=== PATIENT | female | born 1965 | race Caucasian/White ===

== ENCOUNTER 2018-05-02 16:29 | Emergency (ER) | payer OTHER ==
[2018-05-02] MEDS ORDERED: ACETAMINOPHEN 500 MG TAB PO ONE (16:45)
[2018-05-02] MEDS: NS 1,000 ML IV ONE ×2 (17:10→18:04)
--- NOTE | 2018-05-02 17:28 | EDPHY ---
H & P Stated Complaint: c/o lower abd pain last pm then this am Nausea/fever inc today Time Seen by Provider: 05/02/18 16:37 HPI/ROS: CHIEF COMPLAINT: Fever and lower abdominal pain History by patient HISTORY OF PRESENT ILLNESS: 52-year-old woman with a history of fibromyalgia, hypothyroidism is referred by her primary care physician [place] the [place] because of elevated temperature and lower abdominal pain. Patient states that last night she began developing lower crampy abdominal pain which felt something like period cramps or may be needed to have a bowel movement. She woke in the middle the night covered in sweat. This morning she woke up and she felt generally weak and continued to have the lower abdominal pain cramps. She denies any dysuria, urgency or frequency. She does radiate into her back somewhat. She has had some ongoing foul-smelling yellow vaginal discharge for several weeks to months. She has associates this with being put on hormones by a new physician. Her daughter recently had pharyngitis but the patient denies any sore throat or pain with swallowing. She has had no cough or runny nose. She denies any difficulty breathing. She has had some nausea but no vomiting has been unable to eat today because of this. REVIEW OF SYSTEMS: As in HPI, and all other systems reviewed and are negative Source: Patient - Personal History LMP (Females 10-55): 8-14 Days Ago Current Tetanus Diphtheria and Acellular Pertussis (TDAP): Yes - Medical/Surgical History Other PMH: Chronic fatigue/FM/ - Social History Smoking Status: Never smoked - Physical Exam Exam: General Appearance: Alert, nontoxic-appearing Head: normocephalic, atraumatic Eyes: Pupils equal and round, reactive to light, no pallor or injection. Mouth: Mucous membranes moist. Oropharynx clear Neck: No bony tenderness, full range of motion Respiratory: Normal, effort, lungs are clear to auscultation. No wheezes, rales or rhonchi. Cardiovascular: Regular rate and rhythm. S1, S2, no murmurs, gallops or rubs appreciated Gastrointestinal: Abdomen is soft and mild bilateral lower abdominal and suprapubic tenderness, no masses, bowel sounds normal. : Positive copious thick white discharge, positive friable, red, irregular cervix, positive cervical motion tenderness and left adnexal tenderness Back: Mild bilateral CVA tenderness, no bony tenderness Neurological: Awake, alert and oriented x 3, cranial nerves 2-12 intact, no pronator drift, normal gait, Skin: Warm and dry, no rashes. Musculoskeletal: No deformities or tenderness. Extremities: full range of motion, no edema, DP2+ bilat Psychiatric: Patient has normal affect, there is no agitation. Constitutional: Initial Vital Signs Temperature (C) 38 C 05/02/18 16:39 Heart Rate 116 H 05/02/18 16:39 Respiratory Rate 20 05/02/18 16:39 Blood Pressure 120/82 H 05/02/18 16:39 O2 Sat (%) 95 05/02/18 16:39 O2 Delivery Mode Room Air Allergies/Adverse Reactions: levothyroxine Allergy (Verified 05/02/18 16:38) Home Medications: Medication Instructions Recorded Doxycycline Monohydrate 100 mg PO BID #28 capsule 05/02/18 Levothyroxine 05/02/18 metroNIDAZOLE [Flagyl 500 mg (*)] 500 mg PO BID #28 tab 05/02/18 Medical Decision Making - Diagnostics Imaging Results: Imaging Impressions Chest X-Ray 05/02/18 16:37 Impression: Normal. Pelvic/Renal Ultrasound 05/02/18 17:48 Impression: 1. No evidence of tubo-ovarian abscess. These findings were discussed with Nataliia Crocker by telephone at 6:51 PM on 05/02/2018 Imaging: Discussed imaging studies w/ mail caller Radiologist ED Course/Re-evaluation: 52-year-old woman presents with fever and lower abdominal pain and vaginal discharge. Exam is consistent with pelvic inflammatory disease however given her high fever tenderness, elevated white blood cell count, and uterine fullness and transvaginal ultrasounds obtained to rule out tubo-ovarian abscess. This was read as negative by the radiologist. Patient was given 2 L of IV fluids, IV ceftriaxone and oral doxycycline on re-evaluation she was feeling better, her temperature came down and her heart rate was normal. There is no evidence of significant systemic toxicity in her lactate was within normal limits. At this point I think it is safe to treat her as an outpatient. I have also written a prescription for her for primary treatment. We discussed the need to use condoms as she is completely finished her antibiotics. GC chlamydia genprobe was sent well as swab for Gardnerella and these results are pending at time dictation. Patient will call for these results. I recommending close follow up with primary care physician for recheck next week and we discussed return precautions with the emerged department over the weekend. Patient understands and is agreeable to this plan. - Data Points Laboratory Results: Laboratory Results 05/02/18 16:50 05/02/18 05/02/18 05/02/18 17:45 17:45 17:42 WBC RBC Hgb Hct MCV MCH MCHC RDW Plt Count MPV Neut % (Auto) Lymph % (Auto) Lamar % (Auto) Eos % (Auto) Baso % (Auto) Nucleat RBC Rel Count Absolute Neuts (auto) Absolute Lymphs (auto) Absolute Monos (auto) Absolute Eos (auto) Absolute Basos (auto) Absolute Nucleated RBC Immature Gran % Immature Gran # POC Sodium POC Potassium POC Chloride POC Total CO2 POC BUN POC Creatinine POC Glucose POC Lactic Acid Lui 1.7 mmol/L mmol/L (0.7-2.1) POC Calcium POC Total Bilirubin 1.0 mg/dL mg/dL (0.1-1.4) Total Bilirubin Conjugated Bilirubin Unconjugated Bilirubin POC GGT 13 IU/L IU/L (5-65) POC AST 25 IU/L IU/L (14-46) AST POC ALT 21 IU/L IU/L (9-52) ALT POC Alk Phosphatase 76 IU/L IU/L (38-126) Alkaline Phosphatase POC Total Protein 7.5 g/dL g/dL (6.3-8.2) Total Protein POC Albumin 4.2 g/dL g/dL (3.5-5.0) Albumin POC Amylase 36 IU/L IU/L (30-110) Ana species DNA C.trachomatis RNA (TMA) TNP Gardnerella DNA Probe N.gonorrhoeae RNA (TMA) TNP Trichomonas DNA Probe 05/02/18 05/02/18 05/02/18 17:40 17:23 16:50 WBC RBC Hgb Hct MCV MCH MCHC RDW Plt Count MPV Neut % (Auto) Lymph % (Auto) Lamar % (Auto) Eos % (Auto) Baso % (Auto) Nucleat RBC Rel Count Absolute Neuts (auto) Absolute Lymphs (auto) Absolute Monos (auto) Absolute Eos (auto) Absolute Basos (auto) Absolute Nucleated RBC Immature Gran % Immature Gran # POC Sodium 137 mEq/L mEq/L (135-145) POC Potassium 3.3 mEq/L mEq/L (3.3-5.0) POC Chloride 102.0 mEq/L mEq/L (97-110) POC Total CO2 23 mEq/L mEq/L (22-31) POC BUN 8 mg/dL mg/dL (7-23) POC Creatinine 0.6 mg/dL mg/dL (0.6-1.0) POC Glucose 103 mg/dL H mg/dL (70-100) POC Lactic Acid Lui POC Calcium 9.7 mg/dL mg/dL (8.5-10.4) POC Total Bilirubin Total Bilirubin 0.9 mg/dL mg/dL (0.1-1.4) Conjugated Bilirubin 0.1 mg/dL mg/dL (0.0-0.5) Unconjugated Bilirubin 0.8 mg/dL mg/dL (0.0-1.1) POC GGT POC AST AST 21 IU/L IU/L (14-46) POC ALT ALT 32 IU/L IU/L (9-52) POC Alk Phosphatase Alkaline Phosphatase 83 IU/L IU/L (38-126) POC Total Protein Total Protein 7.3 g/dL g/dL (6.3-8.2) POC Albumin Albumin 4.2 g/dL g/dL (3.5-5.0) POC Amylase Ana species DNA Pending C.trachomatis RNA (TMA) Gardnerella DNA Probe Pending N.gonorrhoeae RNA (TMA) Trichomonas DNA Probe Pending 05/02/18 16:50 WBC 14.26 10^3/uL H 10^3/uL (3.80-9.50) RBC 4.47 10^6/uL 10^6/uL (4.18-5.33) Hgb 13.9 g/dL g/dL (12.6-16.3) Hct 38.7 % % (38.0-47.0) MCV 86.6 fL fL (81.5-99.8) MCH 31.1 pg pg (27.9-34.1) MCHC 35.9 g/dL g/dL (32.4-36.7) RDW 11.7 % % (11.5-15.2) Plt Count 258 10^3/uL 10^3/uL (150-400) MPV 9.6 fL fL (8.7-11.7) Neut % (Auto) 83.3 % H % (39.3-74.2) Lymph % (Auto) 8.3 % L % (15.0-45.0) Lamar % (Auto) 7.6 % % (4.5-13.0) Eos % (Auto) 0.1 % L % (0.6-7.6) Baso % (Auto) 0.2 % L % (0.3-1.7) Nucleat RBC Rel Count 0.0 % % (0.0-0.2) Absolute Neuts (auto) 11.89 10^3/uL H 10^3/uL (1.70-6.50) Absolute Lymphs (auto) 1.18 10^3/uL 10^3/uL (1.00-3.00) Absolute Monos (auto) 1.08 10^3/uL H 10^3/uL (0.30-0.80) Absolute Eos (auto) 0.01 10^3/uL L 10^3/uL (0.03-0.40) Absolute Basos (auto) 0.03 10^3/uL 10^3/uL (0.02-0.10) Absolute Nucleated RBC 0.00 10^3/uL 10^3/uL (0-0.01) Immature Gran % 0.5 % % (0.0-1.1) Immature Gran # 0.07 10^3/uL 10^3/uL (0.00-0.10) POC Sodium POC Potassium POC Chloride POC Total CO2 POC BUN POC Creatinine POC Glucose POC Lactic Acid Lui POC Calcium POC Total Bilirubin Total Bilirubin Conjugated Bilirubin Unconjugated Bilirubin POC GGT POC AST AST POC ALT ALT POC Alk Phosphatase Alkaline Phosphatase POC Total Protein Total Protein POC Albumin Albumin POC Amylase Ana species DNA C.trachomatis RNA (TMA) Gardnerella DNA Probe N.gonorrhoeae RNA (TMA) Trichomonas DNA Probe Medications Given: Discontinued Medications Acetaminophen (Tylenol) 1,000 mg PO EDNOW ONE Stop: 05/02/18 16:46 Last Admin: 05/02/18 17:10 Dose: 1,000 mg Sodium Chloride (Ns) 1,000 mls @ 0 mls/hr IV ONCE ONE; Wide Open PRN Reason: Protocol Stop: 05/02/18 16:38 Last Admin: 05/02/18 18:04 Dose: 1,000 mls Cefoxitin Sodium 2 gm/ Sodium (Chloride) 100 mls @ 200 mls/hr IV EDNOW ONE PRN Reason: Protocol Stop: 05/02/18 18:20 Last Admin: 05/02/18 18:05 Dose: 100 mls Doxycycline Hyclate 100 mg/ (Sodium Chloride) 260 mls @ 260 mls/hr IV Q12HRS KALYAN PRN Reason: Protocol Stop: 06/01/18 20:59 Last Admin: 05/02/18 18:54 Dose: 260 mls Sodium Chloride (Ns) 1,000 mls @ 0 mls/hr IV ONCE ONE PRN Reason: Wide Open Stop: 05/02/18 17:53 Last Admin: 05/02/18 18:28 Dose: Not Given Point of Care Test Results: Chemistry 05/02/18 05/02/18 17:42 17:23 POC Sodium 137 mEq/L mEq/L (135-145) POC Potassium 3.3 mEq/L mEq/L (3.3-5.0) POC Chloride 102.0 mEq/L mEq/L (97-110) POC Total CO2 23 mEq/L mEq/L (22-31) POC BUN 8 mg/dL mg/dL (7-23) POC Creatinine 0.6 mg/dL mg/dL (0.6-1.0) POC Glucose 103 mg/dL H mg/dL (70-100) POC Calcium 9.7 mg/dL mg/dL (8.5-10.4) POC Total Bilirubin 1.0 mg/dL mg/dL (0.1-1.4) POC GGT 13 IU/L IU/L (5-65) POC AST 25 IU/L IU/L (14-46) POC ALT 21 IU/L IU/L (9-52) POC Alk Phosphatase 76 IU/L IU/L (38-126) POC Total Protein 7.5 g/dL g/dL (6.3-8.2) POC Albumin 4.2 g/dL g/dL (3.5-5.0) POC Amylase 36 IU/L IU/L (30-110) Blood Gas/Lactic Acid-Venous 05/02/18 17:45 POC Lactic Acid Lui 1.7 mmol/L mmol/L (0.7-2.1) Departure - Departure Disposition: Home, Routine, Self-Care Clinical Impression: PID (acute pelvic inflammatory disease) Condition: Good Instructions: Pelvic Inflammatory Disease (ED) Additional Instructions: You were seen by Dr. Nataliia Crocker today. We are treating you for pelvic inflammatory disease. Please take antibiotics as prescribed. Take your probiotics see in between doses of antibiotics not at the same time. Please follow up with primary care physician next week for recheck and sooner in the ER if he seemed to be getting worse over the weekend. Do not have sexual intercourse with out using condoms until you have completed a full course of antibiotics. We did not do a Pap smear today. I recommend having a Pap smear or HPV test as soon as possible as there was some inflammation on your cervix. Return for any worsening or new concerns. Referrals: Michaelle Colunga DO [Primary Care Provider] - As per Instructions Prescriptions: Doxycycline Monohydrate 100 mg PO BID #28 capsule metroNIDAZOLE [Flagyl 500 mg (*)] 500 mg PO BID #28 tab
[2018-05-02] MEDS ORDERED: cefOXitin SODIUM 2 GM in NS 100 ML IV ONE (17:51)
[2018-05-02] MEDS ORDERED: NS 1,000 ML IV ONE (17:52)
[2018-05-02 18:26] LABS: PLATELET COUNT 258 10^3/uL (150-400)
[2018-05-02] MEDS ORDERED: DOXYCYCLINE INJ 100 MG in NS 250 ML IV SCH (21:00)
[2018-05-02 21:14] VITALS: BP 113/71
[2018-05-05 12:11] LABS: GC AMPLIFICATION GENPROBE NEGATIVE (NEGATIVE)
== END 2018-05-02 19:46 | disposition home or self-care (01) ==
LOC: CED 16:29
DX: N73.9 Female pelvic inflammatory disease, unspecified (principal); E86.9 Volume depletion, unspecified
CPT/HCPCS: 71046-PO; 76856-PO; 80048-PO; 80076-PO; 82150-PO; 83605-PO; 96365; J0694

== ENCOUNTER 2018-05-05 16:13 | Observation (INO) | payer OTHER ==
[2018-05-05] MEDS ORDERED: NS 1,000 ML IV ONE (16:41)
--- NOTE | 2018-05-05 16:41 | EDPHY ---
H & P Stated Complaint: HIVES/NAUSEA AFTER STARTING FLAGYL/DOXY Time Seen by Provider: 05/05/18 16:16 HPI/ROS: CHIEF COMPLAINT: Vomiting HISTORY OF PRESENT ILLNESS: 52-year-old female presents with persistent vomiting. Onset of lower abdominal pain and fever 4 days ago. She was seen at the [facility] 3 days ago and diagnosed with PID. She was given ceftriaxone IM and prescriptions for Flagyl and doxycycline. Presents today because of persistent vomiting after taking the antibiotics. Also developed an itchy rash after abx. 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 The lower abdominal pain is returning and now is localized to the right lower quadrant. One sexual partner (). No sexual intercourse in 3-4 months. REVIEW OF SYSTEMS: complete 10 point ROS reviewed and is negative except for the noted elements in the HPI - Personal History Current Tetanus/Diphtheria Vaccine: Yes - Medical/Surgical History Hx Asthma: No Hx Chronic Respiratory Disease: No Hx Diabetes: No Hx Cardiac Disease: No Hx Renal Disease: No Hx Cirrhosis: No Hx Alcoholism: No Hx HIV/AIDS: No Hx Splenectomy or Spleen Trauma: No Other PMH: Chronic fatigue/FM/ ., HYPOTHYROID, FIBROMYALGIA - Social History Smoking Status: Never smoked Additional Social History: - Physical Exam Exam: General Appearance: Alert, pleasant Eyes: Pupils equal and round, no conjunctival pallor or injection ENT, Mouth: Mucous membranes moist Neck: Normal inspection Respiratory: Lungs are clear to auscultation Cardiovascular: Regular rate and rhythm Gastrointestinal: Abdomen is soft, right lower quadrant and suprapubic tenderness Neurological: A&O, nonfocal, normal gait Skin: Warm and dry, no rash Extremities: Nontender, no pedal edema Psychiatric: Tearful at times Constitutional: Initial Vital Signs Temperature (C) 36.8 C 05/05/18 16:23 Heart Rate 89 05/05/18 16:23 Respiratory Rate 16 05/05/18 16:23 Blood Pressure 126/86 H 05/05/18 16:23 O2 Sat (%) 96 05/05/18 16:23 O2 Delivery Mode Room Air Allergies/Adverse Reactions: doxycycline Allergy (Intermediate, Verified 05/05/18 19:27) Vomiting metronidazole [From Flagyl] Allergy (Intermediate, Verified 05/05/18 19:27) Vomiting levothyroxine Allergy (Verified 05/02/18 16:38) Home Medications: Medication Instructions Recorded Citalopram Hydrobromide 40 mg PO DAILY 05/05/18 [Citalopram HBr] Cyclobenzaprine [Cyclobenzaprine 5 mg PO DAILY PRN 05/05/18 HCl] Dhea Sr 40mg 4 mg PO DAILY@10 05/05/18 Gabapentin [Neurontin 100 MG (*)] 100 - 200 mg PO DAILY@05/05/18 Herbals/Supplements -Info Only 1 ea PO DAILY 05/05/18 Levothyroxine [Synthroid 75 mcg 75 mcg PO DAILY06 05/05/18 (*)] Ondansetron [Zofran Odt] 8 mg PO Q6 PRN 05/05/18 Progesterone Er 30mg 30 mg PO DAILY@05/05/18 T3/T4 0.75gr 1 tab PO DAILY@05/05/18 clonazePAM [Klonopin (*)] 0.5 mg PO DAILY@05/05/18 traZODone [traZODONE 50MG (*)] 50 - 100 mg PO HS 05/05/18 Medical Decision Making - Diagnostics Imaging Results: Imaging Impressions Abdomen CT 05/05/18 16:42 Impression: 1. Mild diverticulitis suspected mid sigmoid colon anteriorly above the bladder and anterior to the uterus. 2. Uterine fibroids with left adnexal follicular cyst noted. Findings discussed with Leah Villalta M.D. at 17:41 hour, 05/05/2018. Imaging: Discussed imaging studies w/ call or contact centre manager Radiologist ED Course/Re-evaluation: Old medical record reviewed. Cultures from 05/02/2018 are negative, including Chlamydia and gonorrhea. IV normal saline 1 L given for dehydration. CT abd/ pelvis ordered to r/o appy. Benadryl 25mg IV for allergic rxn. Unclear if the allergic reaction is related to Flagyl or doxycycline. CT scan results reveal acute diverticulitis. Results discussed with the patient and her . Discussed admission versus discharge home. Patient prefers to be admitted because of persistent vomiting. I feel that this is a good option for this patient. Hospitalist service was consulted for admission. Invanz 1 g IV given. Differential Diagnosis: Differential diagnosis includes though it is not limited to ectopic , ovarian cyst, ovarian torsion, PID, UTI, appendicitis. - Data Points Laboratory Results: Laboratory Results 05/05/18 16:50 05/05/18 16:50 05/05/18 05/05/18 05/05/18 16:56 16:50 16:50 WBC 5.87 10^3/uL 10^3/uL (3.80-9.50) RBC 3.95 10^6/uL L 10^6/uL (4.18-5.33) Hgb 12.2 g/dL L g/dL (12.6-16.3) POC Hgb 11.9 gm/dL L gm/dL (12.6-16.3) Hct 35.1 % L % (38.0-47.0) POC Hct 35 % L % (38-47) MCV 88.9 fL fL (81.5-99.8) MCH 30.9 pg pg (27.9-34.1) MCHC 34.8 g/dL g/dL (32.4-36.7) RDW 11.9 % % (11.5-15.2) Plt Count 259 10^3/uL 10^3/uL (150-400) MPV 9.2 fL fL (8.7-11.7) Neut % (Auto) 55.8 % % (39.3-74.2) Lymph % (Auto) 33.0 % % (15.0-45.0) [place] % (Auto) 9.5 % % (4.5-13.0) Eos % (Auto) 1.0 % % (0.6-7.6) Baso % (Auto) 0.5 % % (0.3-1.7) Nucleat RBC Rel Count 0.0 % % (0.0-0.2) Absolute Neuts (auto) 3.27 10^3/uL 10^3/uL (1.70-6.50) Absolute Lymphs (auto) 1.94 10^3/uL 10^3/uL (1.00-3.00) Absolute Monos (auto) 0.56 10^3/uL 10^3/uL (0.30-0.80) Absolute Eos (auto) 0.06 10^3/uL 10^3/uL (0.03-0.40) Absolute Basos (auto) 0.03 10^3/uL 10^3/uL (0.02-0.10) Absolute Nucleated RBC 0.00 10^3/uL 10^3/uL (0-0.01) Immature Gran % 0.2 % % (0.0-1.1) Immature Gran # 0.01 10^3/uL 10^3/uL (0.00-0.10) POC Sodium 140 mEq/L mEq/L (135-145) Sodium 138 mEq/L mEq/L (135-145) POC Potassium 3.7 mEq/L mEq/L (3.3-5.0) Potassium 3.9 mEq/L mEq/L (3.3-5.0) POC Chloride 104 mEq/L mEq/L (97-110) Chloride 103 mEq/L mEq/L (97-110) Carbon Dioxide 25 mEq/l mEq/l (22-31) Anion Gap 10 mEq/L mEq/L (8-16) POC BUN 8 mg/dL mg/dL (7-23) BUN 10 mg/dL mg/dL (7-23) Creatinine 0.6 mg/dL mg/dL (0.6-1.0) POC Creatinine 0.7 mg/dL mg/dL (0.6-1.0) Estimated GFR > 60 Glucose 86 mg/dL mg/dL (70-100) POC Glucose 85 mg/dL mg/dL (70-100) Calcium 9.5 mg/dL mg/dL (8.5-10.4) Total Bilirubin 0.3 mg/dL mg/dL (0.1-1.4) Conjugated Bilirubin 0.1 mg/dL mg/dL (0.0-0.5) Unconjugated Bilirubin 0.2 mg/dL mg/dL (0.0-1.1) AST 27 IU/L IU/L (14-46) ALT 42 IU/L IU/L (9-52) Alkaline Phosphatase 72 IU/L IU/L (38-126) Total Protein 6.7 g/dL g/dL (6.3-8.2) Albumin 3.9 g/dL g/dL (3.5-5.0) Lipase 82 IU/L IU/L (23-300) Medications Given: Trazodone HCl (Trazodone) 50 - 100 mg PO HS [facility] Stop: 11/01/18 20:59 Last Admin: 05/05/18 20:43 Dose: 100 mg Discontinued Medications Diphenhydramine HCl (Benadryl Injection) 25 mg IVP EDNOW ONE Stop: 05/05/18 17:54 Last Admin: 05/05/18 18:03 Dose: 25 mg Sodium Chloride (Ns) 1,000 mls @ 0 mls/hr IV EDNOW ONE; Wide Open PRN Reason: Protocol Stop: 05/05/18 16:42 Last Admin: 05/05/18 16:50 Dose: 1,000 mls Ertapenem 1 gm/ Sodium (Chloride) 100 mls @ 200 mls/hr IV EDNOW ONE PRN Reason: Protocol Stop: 05/05/18 18:27 Last Admin: 05/05/18 18:23 Dose: 100 mls Promethazine HCl (Phenergan) 12.5 mg IVP ONCE ONE Stop: 05/05/18 19:14 Last Admin: 05/05/18 19:28 Dose: 12.5 mg Point of Care Test Results: Chemistry 05/05/18 16:56 POC Sodium 140 mEq/L mEq/L (135-145) POC Potassium 3.7 mEq/L mEq/L (3.3-5.0) POC Chloride 104 mEq/L mEq/L (97-110) POC BUN 8 mg/dL mg/dL (7-23) POC Creatinine 0.7 mg/dL mg/dL (0.6-1.0) POC Glucose 85 mg/dL mg/dL (70-100) ISTAT H&H 05/05/18 16:56 POC Hgb 11.9 gm/dL L gm/dL (12.6-16.3) POC Hct 35 % L % (38-47) Departure - Departure Disposition: [facility] Inpatient Acute Clinical Impression: Diverticulitis Allergic reaction caused by a drug Qualifiers: Encounter type: initial encounter Qualified Code(s): T78.40XA - Allergy, unspecified, initial encounter Condition: Fair
[2018-05-05] MEDS ORDERED: IOPAMIDOL (ISOVUE-300) 100 ML BTL ONE (17:09)
[2018-05-05 17:10] LABS: PLATELET COUNT 259 10^3/uL (150-400)
[2018-05-05] MEDS ORDERED: ERTAPENEM 1 GM in NS 100 ML IV ONE (17:58)
[2018-05-05] MEDS ORDERED: PROMETHAZINE HCL 25 MG/ML INJ IVP ONE (19:13)
[2018-05-05] MEDS ORDERED: PROMETHAZINE HCL 25 MG/ML INJ ONE (19:17)
[2018-05-05] MEDS ORDERED: PROMETHAZINE HCL 25 MG/ML INJ IVP PRN (19:51)
[2018-05-05] MEDS ORDERED: ONDANSETRON DISINTEGRATING 4 MG TAB PO PRN (19:51)
[2018-05-05] MEDS ORDERED: IBUPROFEN 200 MG TAB PO PRN (19:51)
[2018-05-05] MEDS ORDERED: diphenhydrAMINE 25 MG CAP PO PRN (19:51)
[2018-05-05] MEDS ORDERED: TEMAZEPAM 15 MG CAP PO PRN (19:51)
[2018-05-05] MEDS ORDERED: ACETAMINOPHEN 325 MG TAB PO PRN (19:51)
[2018-05-05] MEDS ORDERED: ONDANSETRON 4 MG/2 ML VIAL IVP PRN (19:51)
[2018-05-05] MEDS ORDERED: HYDROCODONE/APAP 5/325 TAB PO PRN (19:51)
[2018-05-05] MEDS ORDERED: NON-FORMULARY NEW DRUG (Ondansetron [Zofran Odt] 8 MG) PO PRN (19:53)
--- NOTE | 2018-05-05 20:51 | GHP ---
DATE OF ADMISSION: 05/05/2018 CHIEF COMPLAINT: Abdominal pain, nausea, vomiting. HISTORY: This is a 52-year-old female with a past medical history that includes hypothyroidism, fibr omyalgia, and chronic fatigue syndrome who presents with complaints of persistent vomiting as well as abdominal pain and fever. The patient notes that she has had symptoms for approximately the last 5 days. Four days ago she went to [facility] [place] she was diagnosed with a presumptive PID based on pelvic e xam and symptoms. She was given ceftriaxone IM as well as prescriptions for Flagyl and doxycycline. Following the antibiotic, she developed a rash with hives and noted that her abdominal pain continue d and she also developed worsening nausea and vomiting. She notes that currently the pain is improve d but is still present when she ambulates. She has not been able to eat very much. Only had a bagel today. She does currently feel hungry, however, and states that overall nausea and vomiting is much resolved. In the emergency department, it was noted that her gonorrhea and chlamydia screens actual ly came back negative, and patient stated that she has only 1 sexual partner, who is her , and has not been sexually active for the last [address] was obtained which showed what appeared to be mild diverticulitis as well as a uterine fibroid. PAST MEDICAL HISTORY: Includes: 1. Hypothyroidism. 2. Fibromyalgia. 3. Chronic fatigue. PAST SURGICAL HISTORY: Includes . FAMILY HISTORY: Reviewed and noncontributory. SOCIAL HISTORY: Patient is . She is a nonsmoker. She drinks very rarely. No drug use. REVIEW OF SYSTEMS: 10-point review of systems obtained, negative except as per HPI. HOME MEDICATIONS: 1. Gabapentin. 2. T3-T4. 3. DHEA. 4. Progesterone. 5. Trazodone. 6. Levothyroxine. 7. Zofran. 8. Cyclobenzaprine. 9. Clonazepam. 10. Citalopram. ALLERGIES: Include: 1. Doxycycline. 2. Flagyl. 3. Levothyroxine. PHYSICAL EXAMINATION: VITAL SIGNS: BP 127/78, heart rate 80, respiratory rate 16, O2 sats 96% on ro om air. Temperature is 36.8. GENERAL APPEARANCE: This is a well-developed/well-nourished female. She is awake and alert. She is in no acute distress. EYES: Anicteric. HENT: Oropharynx clear. CA RDIOVASCULAR: Regular rate and rhythm, no MRG. PULMONARY: CTA bilaterally. Normal work of breathi ng. ABDOMEN: Soft, nontender, nondistended. Positive bowel sounds. EXTREMITIES: No clubbing, cyano sis, or edema. SKIN: Warm, dry, well perfused. NEURO/PSYCH: Oriented, appropriate, pleasant. CLINICAL DATA: Labs reviewed. Notable for white blood cell count of 5.8, hemoglobin of 12.2, platel ets of 259. Chemistry is reviewed and is completely unremarkable. Abdominal CT personally reviewed and interpreted, shows mild diverticulitis, uterine fibroid, and a l eft adnexal cyst. ASSESSMENT AND PLAN: This is a 52-year-old female with past medical history that includes hypothyroi d, fibromyalgia, and chronic fatigue syndrome, admitted with abdominal pain, nausea, vomiting, found to be secondary to uncomplicated diverticulitis. 1. Acute uncomplicated diverticulitis. The patient has been started on ertapenem given her allergie s to Flagyl. She is symptomatically much improved, is already hungry, and has bowel sounds present. On CT, this did appear to be very mild and early diverticulitis. Plan will be to transition her to moxifloxacin for oral management in the morning. I suspect if she is eating, tolerating the antibiot ics, and otherwise doing well, that she could discharge home tomorrow with a plan to treat for a tota l of 7 days. 2. Hives. Her rash seems to have resolved. Unclear whether this was related to the Flagyl versus t he doxycycline, but at any rate, both of these are now listed as allergies. Given that she does not have pelvic inflammatory disease, she will not need to complete a treatment for this. 3. Adnexal cyst/uterine fibroid. Both of these do appear benign by imaging. This is likely why damari wall had appreciated fullness on her pelvic examination. Will defer to outpatient management. 4. Chronic medical issues including hypothyroid and fibromyalgia. Will continue her outpatient el gement. 5. Observation status. Suspect patient will require less than 48-hour stay for evaluation and manag ement of above. 6. Patient is new to my care. Old records reviewed, summarized as per history of present illness an d past medical history. Care plan reviewed with emergency room physician including plans for overnig ht observation. Further history obtained from patient's present at bedside. /[id number]/MODL
[2018-05-05] MEDS ORDERED: traZODone 50 MG TAB PO SCH (21:00)
[2018-05-05] MEDS ORDERED: clonazePAM 0.5 MG TAB PO SCH (23:00)
[2018-05-05] MEDS ORDERED: PROGESTERONE 30 MG PO SCH (23:00)
[2018-05-06] MEDS ORDERED: [UNRECOGNIZED DRUG - OTHER] PO SCH (05:00)
[2018-05-06] MEDS ORDERED: LEVOTHYROXINE 75 MCG PO SCH (06:00)
[2018-05-06] MEDS ORDERED: CYCLOBENZAPRINE 10 MG TAB PO PRN (09:00)
[2018-05-06] MEDS ORDERED: MOXIFLOXACIN 400 MG TAB PO SCH (09:00)
[2018-05-06] MEDS ORDERED: CITALOPRAM 20 MG TAB PO SCH (09:00)
[2018-05-06] MEDS ORDERED: PRASTERONE PO SCH (10:00)
[2018-05-06 12:04] VITALS: BP 105/64
--- NOTE | 2018-05-06 14:40 | GDS ---
DISCHARGE DIAGNOSES: 1. Diverticulitis. 2. Uterine fibroid. 3. Nausea and vomiting. STUDIES AND PROCEDURES DONE: CT of the abdomen. PHYSICAL EXAM: GENERAL: The patient is alert. VITAL SIGNS: Afebrile at 36.7, pulse 74, respirator y rate is 20. Blood pressure 105/64. She is saturating 94% on room air. I have seen and evaluated the patient on the day of discharge. HOSPITAL COURSE: The patient is a 52-year-old female who presented to the emergency room with compla ints of abdominal pain with nausea and vomiting. During this hospitalization, she received a CAT sca n noting uncomplicated diverticulitis. She was treated with IV antibiotic therapy and has been trans itioned to oral antibiotics. She is tolerating moxifloxacin, and this antibiotic has been chosen sec ondary to the patient's allergies. Her nausea and vomiting have completely resolved. Her hives are gone. She does have an incidental noted uterine fibroid on her CT scan, which can be followed up in the outpatient setting. There are no pending studies. She will be discharged home independently. DISCHARGE MEDICATIONS: Please refer to EMR form. I have provided the patient a prescription for mox ifloxacin 400 mg daily #5. FOLLOWUP: With her primary care physician. /[id number]/MODL
[2018-05-06] MEDS ORDERED: GABAPENTIN 100 MG CAP PO SCH (18:00)
== END 2018-05-06 16:37 | disposition home or self-care (01) ==
LOC: F3E 19:36
PROVIDERS: ADMIT Internal Medicine; ATTEND Internal Medicine
DX: K57.32 Diverticulitis of large intestine without perforation or abscess without bleeding (principal); D25.9 Leiomyoma of uterus, unspecified; R11.2 Nausea with vomiting, unspecified; Z23 Encounter for immunization
CPT/HCPCS: 74177; 90471; 99285; G0378; 82435-PO; 82565-PO; 82947-PO; 84132-PO; 84295-PO; 84520-PO; 85014-PO; G0008; J1200; J1335; J2550; Q9967

== ENCOUNTER → 2018-11-04 | Outpatient (CLI) | payer OTHER | LOC: CIMAGING 13:16 | PROVIDERS: ATTEND Family Medicine | DX: R10.9 Unspecified abdominal pain (principal); R14.3 Flatulence | CPT/HCPCS: 74019-PO ==